=== PATIENT | female | born 1960 | race Caucasian/White ===

== ENCOUNTER → 2020-11-26 08:22 | Outpatient (CLI) | payer MEDICARE, OTHER, SELFPAY ==
--- NOTE | ~2020-11-26 | MR_ITS ---
EXAMINATION: MR lumbar spine wo con EXAM DATE: 11/26/2020 10:09 INDICATION: Radiculopathy, lumbosacral region, Arthrodesis status Radiculopathy. TECHNIQUE: Multi-sequential, multiplanar MR images of the lumbar spine were obtained without contrast . Sagittal T1, T2, T2 fat saturation images. Axial T2 weighted images. There is no prior study for comparison. FINDINGS: There is right renal lesion measuring about 2 cm, which could be cyst but a follow-up kidne y ultrasound should be obtained. Similar appearing region in the upper pole of the right kidney. Ther e is disc disease T10-L3 and L4-5. There is 2 mm retrolisthesis L1 on L2 and L2 on L3. The conus medu llaris terminates at the L1/2 level and has normal signal intensity and morphology. Posterior and in terbody fusion L3-4. Paraspinal soft tissue is unremarkable. Level by level evaluation: T12-L1: There is a mild to moderate diffuse disc bulge. Facet arthropathy: Mild. Neural foraminal stenosis: No stenosis. Central canal stenosis: No stenosis. L1-L2: There is a moderate diffuse disc bulge. Facet arthropathy: Moderate. Neural foraminal stenosis: Moderate left, mild to moderate right. Central canal stenosis: Mild to moderate. L2-L3: There is a moderate to large diffuse disc bulge. Facet arthropathy: Moderate . Ligamentum flavum enlargement. Neural foraminal stenosis: Mild to moderate right, mild left. Central canal stenosis: Moderate. L3-L4: This level is fused. Facet arthropathy: Mild. Neural foraminal stenosis: Mild bilateral. Central canal stenosis: Mild. L4-L5: There is a moderate diffuse disc bulge. Facet arthropathy: Moderate to severe right, moderate left. Neural foraminal stenosis: Moderate to severe right, moderate left. Central canal stenosis: Moderate. L5-S1: Disc does not extend beyond the endplate margin. Facet arthropathy: Severe. Neural foraminal stenosis: No stenosis. Central canal stenosis: No stenosis. IMPRESSION: 1. Renal lesions probably cysts but consider follow-up ultrasound. 2. L3-4 grade 1 retrolisthesis, moderate central canal stenosis. 3. L4-5 right neural foramina most narrowed on exam. 4. Extensor lumbar facet arthropathy. Reviewed, dictated and finalized at location A.
== END ==
PROVIDERS: Visit Provider Physician Assistant
DX: M47.27 Other spondylosis with radiculopathy, lumbosacral region (principal); Z98.1 Arthrodesis status; M47.25 Other spondylosis with radiculopathy, thoracolumbar region; M48.05 Spinal stenosis, thoracolumbar region; M48.07 Spinal stenosis, lumbosacral region
CPT/HCPCS: 72148

== ENCOUNTER → 2021-12-23 08:15 | Outpatient (CLI) | payer MEDICARE, OTHER, SELFPAY ==
--- NOTE | ~2021-12-23 | MR_ITS ---
EXAMINATION: MR lumbar spine wo con DATE: 12/23/2021 09:15 INDICATION: Lumbar postlaminectomy syndrome. Low back pain. Bilateral leg pain. TECHNIQUE: Magnetic resonance imaging (MRI) of the lumbar spine was performed without intravenous con trast. Sequences included sagittal T2-weighted FSE, sagittal T2-weighted FS FSE, sagittal T1-weighted FSE, and axial T2-weighted FSE. COMPARISON: Lumbar spine MRI 11/26/2020 FINDINGS: There is 5 degrees levocurvature of lumbar spine. There is 3 mm retrolisthesis of L1 on L2 and L2 on L3. There is mild chronic anterior wedging of T11 and T12 vertebral bodies. There are Schmo rl's nodes at most levels. There are changes of anterior and posterior fusion procedures at L3-L4 wit h interbody devices and pedicle screws. There is moderately decreased disc height at L1-L2, L2-L3, an d L4-L5. The distal spinal cord signal intensity is normal. The conus medullaris is at L1-L2. Partial ly visualized are cysts in the kidneys measuring up to 17 mm on the left. The following disc levels a re specifically discussed: L1-L2: The disc is bulging. There is severe right and moderate left facet joint osteoarthritis. There is mild right and moderate left neural foraminal stenosis. There is mild central canal stenosis. L2-L3: The disc is bulging and has an annular fissure. There is severe bilateral facet joint osteoart hritis. There is moderate right and mild left neural foraminal stenosis. There is mild central canal stenosis. L3-L4: There is mild bilateral facet joint hypertrophy. There is mild bilateral neural foraminal sten osis. There is mild central canal stenosis. L4-L5: The disc is bulging and has an annular fissure. There is severe bilateral facet joint osteoart hritis. There is moderate right and mild left neural foraminal stenosis. There is mild central canal stenosis. L5-S1: The disc does not extend beyond the endplate margin. There is severe bilateral facet joint ost eoarthritis. There is mild bilateral neural foraminal stenosis. There is no central canal stenosis. IMPRESSION: 1. Moderate lumbar spondylosis, stable from 11/26/2020. 2. Anterior and posterior fusion procedures at L3-L4. Reviewed, dictated and finalized at location A. [employer]
== END ==
PROVIDERS: Visit Provider Physician Assistant
DX: M96.1 Postlaminectomy syndrome, not elsewhere classified (principal); M43.06 Spondylolysis, lumbar region; Z98.1 Arthrodesis status
CPT/HCPCS: 72148

== ENCOUNTER → 2022-11-25 10:43 | Outpatient (CLI) | payer MEDICARE, OTHER, SELFPAY ==
--- NOTE | ~2022-11-25 | XR_ITS ---
Lumbosacral Spine: AP and lateral views Clinical History: Arthrodesis Findings: There is anterior fixation extending across the L3-L4 disc space. There is posterior fusion hardware extending from L2 through L4, with bilateral rods and transpedicular screws present. Interb ja fusion device present at the L2-L3 disc space. There is fusion across the L3-L4 disc space as wel l. There is moderate to advanced degenerative disc narrowing at the remaining disc spaces. There is m oderate to advanced facet arthropathy from L4 through S1. The sacroiliac joints are normally outlined . Impression: Anterior fusion from L3 to L4. Posterior fusion from L2 through L4. Interbody fusion across the L2-L3 and L3-L4 disc spaces. Moderate to advanced degenerative spondylosis, as above. Reviewed, dictated and finalized at location M. Impression: Anterior fusion from L3 to L4. Posterior fusion from L2 through L4. Interbody fusion across the L2-L3 and L3-L4 disc spaces. Moderate to advanced degenerative spondylosis, as above.
== END ==
PROVIDERS: PCP Neurological Surgery; Visit Provider Neurological Surgery
DX: Z98.1 Arthrodesis status (principal); M47.816 Spondylosis without myelopathy or radiculopathy, lumbar region
CPT/HCPCS: 72100

== ENCOUNTER → 2022-12-03 10:41 | Outpatient (CLI) | payer MEDICARE, OTHER, SELFPAY ==
--- NOTE | ~2022-12-03 | CT_ITS ---
EXAMINATION: CT diagnostic chest wo con DATE: 12/03/2022 11:00 INDICATION: COPD TECHNIQUE: Computed tomography (CT) of the chest was performed without intravenous contrast. The dose -length product (DLP) was 228.00 mGy-cm. Automated exposure control and iterative reconstruction tech [id number] were employed. COMPARISON: 05/29/2007 FINDINGS: There is mild emphysema. Mild dependent atelectasis is noted. No pleural effusion or pneumo thorax. No pathologically enlarged thoracic lymph nodes are identified. The heart size is normal. The re is severe thoracic spondylosis. There is a 2.5 cm cyst of the left kidney. IMPRESSION: 1. Mild emphysema. Reviewed, dictated and finalized at location F. IMPRESSION: 1. Mild emphysema.
== END ==
PROVIDERS: PCP Internal Medicine; Visit Provider Internal Medicine
DX: J44.9 Chronic obstructive pulmonary disease, unspecified (principal); J43.9 Emphysema, unspecified
CPT/HCPCS: 71250

== ENCOUNTER 2023-09-20 10:29 | Outpatient (CLI) | payer MEDICARE, OTHER, SELFPAY ==
--- NOTE | ~2023-09-20 | MR_ITS ---
Procedure: MR lumbar spine wo/w con Ordering provider: Charlene Clemente, PA History:62 years Female with . S/P lumbar spine fusion . Comparison: None. Technique: MRI lumbar spine with and without contrast. 19 mL MultiHance was given IV. FINDINGS: CONUS MEDULLARIS: Normal in position and appearance with no abnormal enhancement. The cord ends at th e level of L1. LUMBAR VERTEBRAL BODIES: Postoperative changes at the levels of L2, L3 and L4. Otherwise, Normal heig ht and alignment. no compression fracture. Normal marrow signal. No abnormal marrow enhancement. DISK SPACES: Narrowing of the disc L1-L2, L2-L3, L3-L4, and L4-L5 T12-L1: No stenosis. L1-L2: No stenosis. Diffuse disc bulge with bilateral thickening of the ligamenta flava. Narrowing o f the left intervertebral foramen with nerve root compression. L2-L3: No stenosis. L3-L4: Mild spinal canal stenosis secondary to , facet arthropathy, and ligamentum flavum hypertrophy . No root compression. L4-L5: Moderate spinal canal stenosis secondary to broad based disc bulge, facet arthropathy, and li gamentum flavum hypertrophy. Bilateral nerve root compression with foraminal narrowing. L5-S1: No stenosis. Diffuse disc bulge with bilateral narrowing of the foramina and nerve root compr ession. PARASPINOUS SOFT TISSUES: Bilateral renal cysts. paraspinous enhancement is seen in the soft tissues at the level of L5.. IMPRESSION: 1. Postoperative changes. Multilevel spinal canal stenosis with variable degrees of intervertebral f oraminal narrowing and the root compression. 2. Enhancement opposite L5 posteriorly which is most likely postoperative. Inflammatory changes gilda ot be excluded. Follow-up advised.. Reviewed, dictated and finalized at location A. IMPRESSION: 1. Postoperative changes. Multilevel spinal canal stenosis with variable degre es of intervertebral foraminal narrowing and the root compression. 2. Enhancement opposite L5 posteriorly which is most likely postoperative. Inf lammatory changes cannot be excluded. Follow-up advised..
== END 2023-09-20 10:30 ==
LOC: MICIMG 10:32
PROVIDERS: PCP Physician Assistant; Visit Provider Physician Assistant
DX: M96.1 Postlaminectomy syndrome, not elsewhere classified (principal); M48.061 Spinal stenosis, lumbar region without neurogenic claudication; Z98.1 Arthrodesis status; Z96.89 Presence of other specified functional implants
CPT/HCPCS: 72158; A9577

== ENCOUNTER 2023-10-01 10:01 | Outpatient (CLI) | payer MEDICARE, OTHER, SELFPAY ==
--- NOTE | ~2023-10-01 | MR_ITS ---
EXAMINATION: MR thoracic spine wo con DATE: 10/01/2023 10:37 INDICATION: Chronic low back and right hip pain. Intrathecal pain pump catheter failure. TECHNIQUE: Magnetic resonance imaging (MRI) of the thoracic spine was performed without intravenous c ontrast. Sagittal localizer T1-weighted FSE of the cervicothoracic spine was obtained. Thoracic spine sequences included sagittal T2-weighted FSE, sagittal T1-weighted SE, Sagittal T2-weighted FS FSE, a nd axial T2-weighted FSE. COMPARISON: None FINDINGS: Alignment is normal. Chronic mild likely physiologic anterior wedging at T11 and T12. There are multi ple Schmorl's nodes involving the majority the endplates from the inferior endplate of T6 through the inferior endplate of L1. T1 hyperintense hemangioma at T2. Otherwise normal marrow signal. Metallic magnetic field artifact associated with bilateral L2 pedicle screws for a nonvisualized more caudal l umbar posterior spinal fusion. Moderate disc height loss at T9-T10 through T11-T12 and at L1-L2. Mild disc height loss at the remaining levels from T2-T3 through T12-L1 relatively sparing T5-T6. There is normal spinal cord signal. The conus terminates at L2. Disc protrusions at T2-T3, T3-T4, T6-T7, T1 0-T11 and more diffuse disc bulges at T11-T12 through L1-L2, each result in mild central canal stenos is. Distal tip of an intrathecal catheter seen posterior to the cord at the right posterior aspect of the thecal sac at the level of T7-T8. Severe bilateral facet osteoarthritis at T9-T10 with moderate neural foraminal stenosis on the right at this level. There is mild to moderate facet osteoarthritis throughout the remainder of the thoracic spine with additional moderate neural foraminal stenosis on the left at T2-3 and on the right at T3-T4 and T4-T5. There is mild neural from stenosis at many yasmine tional levels on the left and right. IMPRESSION: 1. Moderate thoracic spondylosis with distal tip of an intrathecal catheter at the level of T7-T8. Reviewed, dictated and finalized at location A.
== END 2023-10-01 10:02 ==
LOC: MICIMG 10:01
PROVIDERS: PCP Physician Assistant; Visit Provider Physician Assistant
DX: M47.814 Spondylosis without myelopathy or radiculopathy, thoracic region (principal); Z96.89 Presence of other specified functional implants; Z98.1 Arthrodesis status
CPT/HCPCS: 72146